=== PATIENT | male | born 1985 | race Caucasian/White ===

== ENCOUNTER 2018-04-05 04:02 | Emergency (ER) | payer OTHER ==
[2018-04-05] MEDS ORDERED: LIDOCAINE 2% INJ (20 MG/ML) 20 ML MDV INJ ONE (04:32)
[2018-04-05] MEDS ORDERED: BUPIVACAINE HCL 0.5 % INJ/PF 30 ML SDV INJ ONE (04:33)
[2018-04-05] MEDS ORDERED: AMOXICILLIN TRIHYDRATE 500 MG CAPSULE PO ONE (04:34)
--- NOTE | 2018-04-05 04:48 | ER Document Report ---
ED General - General Chief Complaint: Ear Pain Stated Complaint: EXTREME LEFT EAR PAIN Time Seen by Provider: 04/05/18 04:29 Primary Care Provider: RAUDEL BLACK DO [ASSOCIATE] - 04/07/18 Notes: Patient is a 33-year-old male presents with complaint of pain in left ear. He said it started tonight. Said some congestion and sore throat. Pain is been intense to the point where he cannot sleep and therefore he came to the ER. No fevers. No vomiting. No diarrhea. No other complaints at this time. TRAVEL OUTSIDE OF THE [place] IN LAST 30 DAYS: No Past Medical History - Social History Smoking Status: Unknown if Ever Smoked Frequency of alcohol use: None Drug Abuse: None Family History: Reviewed & Not Pertinent Patient has suicidal ideation: No Patient has homicidal ideation: No Renal/ Medical History: Denies: Hx Peritoneal Dialysis Review of Systems - Review of Systems Notes: My Normal Review Basic REVIEW OF SYSTEMS: CONSTITUTIONAL : Denies fever, chills, or sweats. Denies recent illness. EENT: Left ear pain GASTROINTESTINAL: No vomiting SKIN: Denies rash or skin lesions.. NEUROLOGICAL: Denies headache. ALL OTHER SYSTEMS REVIEWED AND NEGATIVE. Physical Exam - Vital signs Vitals: Temp Pulse Resp BP Pulse Ox 98 F 66 14 116/65 97 04/05/18 04:10 04/05/18 04:10 04/05/18 04:10 04/05/18 04:10 04/05/18 04:10 - Notes Notes: General Appearance: Well nourished, alert, cooperative, no acute distress, moderate obvious discomfort. Vitals: reviewed, See vital signs table. Head: no swelling or tenderness to the head Eyes: PERRL, EOMI, Conjuctiva clear Mouth: No decreasd moisture Throat: No tonsillar inflammation, No airway obstruction, No lymphadenopathy Left TM is erythematous and bulging. No redness or swelling to the ear canal or external ear. Right TM is normal-appearing. No redness or swelling over the left mastoid area. Neck: Supple, no neck tenderness, No neck swelling Neuro: speech clear, oriented x 3, normal affect, responds appropriately to questions. Course - Re-evaluation Re-evalutation: 04/05/18 04:59 Patient has significant otitis media with a very bulging red painful appearing left tympanic membrane. I did give him a syringe that was half 0.5% bupivacaine and half lidocaine 2%. I encouraged him to place 2 drops in the ear every 6 hours to help with pain control. I will place him on amoxicillin. I am follow- up closely with ENT doctor if he is not having improvement of his pain in the next 2 days. Encouraged him return to ER if he has redness or swelling of the ear, fevers, or if he feels he is worsening in any way. Patient agrees with plan and will be discharged home. Dictation of this chart was performed using voice recognition software; th erefore, there may be some unintended grammatical errors. 04/05/18 05:00 - Vital Signs Vital signs: Temp Pulse Resp BP Pulse Ox 98 F 66 14 116/65 97 04/05/18 04:10 04/05/18 04:10 04/05/18 04:10 04/05/18 04:10 04/05/18 04:10 Discharge - Discharge Clinical Impression: Otitis media Qualifiers: Otitis media type: unspecified Chronicity: acute Qualified Code(s): H66.90 - Otitis media, unspecified, unspecified ear Condition: Good Disposition: HOME, SELF-CARE Additional Instructions: You have an inner ear infection in the left ear which is causing your pain. Please take the antibiotic as prescribed. You can apply the ear drops I gave you as 2 drops every 6 hours for pain. Do not place the ear drops if you have blood coming from you ear as this would be a sign of an ear drum rupture. Please call the ENT physician, Dr. Black, for follow up if you are not having improvement by Thursday. Prescriptions: Amoxicillin Trihydrate [Amoxil 500 mg Capsule] 500 mg PO TID #30 cap Forms: Return to Work Referrals: RAUDEL BLACK DO [ASSOCIATE] - 04/07/18
[2018-04-05] MEDS ORDERED: HYDROCODONE/ACETAMINOPHEN 5-325 MG (6 TAB/ER DISP) PO PRN (05:03)
[2018-04-05 05:09] VITALS: BP 118/60
== END 2018-04-05 05:09 | disposition home or self-care (01) ==
LOC: ER 04:02
DX: H66.92 Otitis media, unspecified, left ear (principal); H92.02 Otalgia, left ear; J02.9 Acute pharyngitis, unspecified
CPT/HCPCS: 99282; J3490 ×2